=== PATIENT | male | born 1955 | race Asian ===

== ENCOUNTER 2021-11-06 20:30 | Observation (INO) ==
[2021-11-06] MEDS ORDERED: ONDANSETRON INJ 2 MG/ML 2 ML VIAL IV STA (20:42)
[2021-11-06] MEDS: MoRPHine SULFATE 4 MG/ML 1 ML CARP\\VIAL IV PRN (20:51)
[2021-11-06 21:30] LABS: Basophils # (auto) 0.02 K/uL (0-0.2); Basophils % (auto) 0.3 %; Eosinophils # (auto) 0.27 K/uL (0-0.5); Eosinophils % (auto) 3.5 %; Hematocrit (blood only) 42.2 % (42-52); Immature Granulocytes # (auto) 0.02 K/uL (0.00-0.02); Immature Granulocytes % (auto) 0.3 %; Lymphocytes # (auto) 2.28 K/uL (1.2-3.4); Lymphocytes % (auto) 29.3 %; Mean Corpuscular Hemoglobin 28.5 pg (25-34); Mean Corpuscular Hgb Conc 33.2 g/dL (32-36); Mean Corpuscular Volume 85.8 fL (80-100); Mean Platelet Volume 10.8 fL (7.4-10.4); Monocytes # (auto) 0.56 K/uL (0.11-0.59); Monocytes % (auto) 7.2 %; Neutrophils # (auto) 4.63 K/uL (1.4-6.5); Neutrophils % (auto) 59.4 %; Platelet Count 161 K/uL (130-400); RDW Coefficient of Variation 13.8 % (11.5-14.5); RDW Standard Deviation 42.9 fL (36.4-46.3); Red Blood Count 4.92 M/uL (4.7-6.1); White Blood Count 7.78 K/uL (4.8-10.8)
[2021-11-06 21:48] LABS: Albumin Globulin Ratio 1.4 (0.9-2); Bilirubin,Total 1.1 mg/dl (0.2-1.0); Calcium 8.9 mg/dl (8.5-10.1); Creatinine Clr Calc Pharmacy 91.1 ml/min; Est GFR (African American) 91.8 ml/min; Est GFR (Non-African American) 79.2 ml/min; Globulin 2.8 gm/dl (2.5-4.0); Potassium 3.9 mmol/L (3.5-5.1); Total Protein 6.8 gm/dl (6.0-8.3)
[2021-11-07] MEDS: MoRPHine SULFATE 4 MG/ML 1 ML CARP\\VIAL IV PRN ×2 (00:24→03:46)
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
--- NOTE | 2021-11-07 03:03 | History & Physical Report ---
Date of Service November 07, 2021 History of Present Illness Primary Care Provider: NO PCP Allergies Allergy/AdvReac Type Severity Reaction Status Date / Time No Known Allergies Allergy Unverified 11/06/21 21:49 Home Medications Medication Instructions Recorded Confirmed Type atenolol 25 mg tablet 25 mg PO DAILY 11/06/21 11/06/21 History atorvastatin 40 mg tablet 40 mg PO DAILY 11/06/21 11/06/21 History Past Med/Surg History Social History Smoking Status: Never smoker Preferred Language: Chadian Feels Safe at Home: Yes Results & Data Results & Data ([facility]) Vital Signs (Past 12 Hours) Vital Signs Temp Pulse Pulse Resp BP BP Pulse Ox 11/07/21 00:26 81 16 142/95 H 95 11/06/21 22:16 97 11/06/21 20:42 36.6 C 77 20 150/90 H 97 Laboratory Results Laboratory Results WBC 7.78 K/uL (4.8-10.8) 11/06/21 21:19 RBC 4.92 M/uL (4.7-6.1) 11/06/21 21:19 Hgb 14.0 g/dL (14.0-18.0) 11/06/21 21:19 Hct 42.2 % (42-52) 11/06/21 21:19 MCV 85.8 fL (80-100) 11/06/21 21:19 MCH 28.5 pg (25-34) 11/06/21 21:19 MCHC 33.2 g/dL (32-36) 11/06/21 21:19 RDW Std Deviation 42.9 fL (36.4-46.3) 11/06/21 21:19 RDW Coeff of Cari 13.8 % (11.5-14.5) 11/06/21 21:19 Plt Count 161 K/uL (130-400) 11/06/21 21:19 MPV 10.8 fL (7.4-10.4) H 11/06/21 21:19 Immature Gran % (Auto) 0.3 % 11/06/21 21:19 Neut % (Auto) 59.4 % 11/06/21 21:19 Lymph % (Auto) 29.3 % 11/06/21 21:19 Bureau % (Auto) 7.2 % 11/06/21 21:19 Eos % (Auto) 3.5 % 11/06/21 21:19 Baso % (Auto) 0.3 % 11/06/21 21:19 Neut # (Auto) 4.63 K/uL (1.4-6.5) 11/06/21 21:19 Lymph # (Auto) 2.28 K/uL (1.2-3.4) 11/06/21 21:19 Bureau # (Auto) 0.56 K/uL (0.11-0.59) 11/06/21 21:19 Eos # (Auto) 0.27 K/uL (0-0.5) 11/06/21 21:19 Baso # (Auto) 0.02 K/uL (0-0.2) 11/06/21 21:19 Immature Gran # (Auto) 0.02 K/uL (0.00-0.02) 11/06/21 21:19 Sodium 138 mmol/L (136-145) 11/06/21 21:19 Potassium 3.9 mmol/L (3.5-5.1) 11/06/21 21:19 Chloride 105 mmol/L (98-107) 11/06/21 21:19 Carbon Dioxide 28 mmol/L (21-32) 11/06/21 21:19 Anion Gap 5 (3-11) 11/06/21 21:19 BUN 18 mg/dl (6-23) 11/06/21 21:19 Creatinine 1.00 mg/dl (0.6-1.4) 11/06/21 21:19 Est Cr Clr Drug Dosing 91.1 ml/min 11/06/21 21:19 Est GFR ( Amer) 91.8 ml/min 11/06/21 21:19 Est GFR (Non-Af Amer) 79.2 ml/min 11/06/21 21:19 BUN/Creatinine Ratio 18.0 (10-20) 11/06/21 21:19 Glucose 104 mg/dl (70-99(Fasting)) H 11/06/21 21:19 Calcium 8.9 mg/dl (8.5-10.1) 11/06/21 21:19 Total Bilirubin 1.1 mg/dl (0.2-1.0) H 11/06/21 21:19 AST 25 U/L (13-39) 11/06/21 21:19 ALT 29 U/L (7-52) 11/06/21 21:19 Alkaline Phosphatase 74 U/L (34-104) 11/06/21 21:19 Total Protein 6.8 gm/dl (6.0-8.3) 11/06/21 21:19 Albumin 4.0 gm/dl (3.4-5.0) 11/06/21 21:19 Globulin 2.8 gm/dl (2.5-4.0) 11/06/21 21:19 Albumin/Globulin Ratio 1.4 (0.9-2) 11/06/21 21:19 SARS-CoV-2, RNA, NAAT NEGATIVE (NEGATIVE) 11/07/21 02:34 Diagnostic Findings Mild brain volume loss. No mass, hemorrhage or acute infarct. There is a small amount of fluid in the left maxillarysinus. Sphenoid sinus mucosal thickening. Right parietal scalp contusion. Impression: Soft tissue trauma.
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
[2021-11-07] MEDS ORDERED: MoRPHine SULFATE 4 MG/ML 1 ML CARP\\VIAL IV PRN (06:42)
[2021-11-07] MEDS ORDERED: ACETAMINOPHEN 325 MG TAB PO PRN (06:42)
[2021-11-07] MEDS ORDERED: MoRPHine SULFATE 2 MG/ML CARP IV PRN (06:42)
[2021-11-07] MEDS ORDERED: POLYETHYLENE (MIRALAX) 17 GM PACK PO PRN (06:42)
[2021-11-07] MEDS ORDERED: ONDANSETRON INJ 2 MG/ML 2 ML VIAL IV PRN (06:42)
[2021-11-07] MEDS ORDERED: DOCUSATE SODIUM 100 MG CAP PO PRN (06:42)
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
[2021-11-07] MEDS ORDERED: ATENOLOL 25 MG TABLET PO SCH (09:00)
[2021-11-07] MEDS ORDERED: ATORVASTATIN 40 MG TAB PO SCH (09:00)
[2021-11-07] MEDS: oxyCODONE HCL IR 5 MG TAB (IMMEDIATE RELEASE) PO PRN ×2 (09:42→15:31)
--- NOTE | 2021-11-07 10:45 | Electrocardiogram Report ---
Test Reason : Blood Pressure : / mmHG Vent. Rate : 076 BPM Atrial Rate : 076 BPM P-R Int : 196 ms QRS Dur : 086 ms QT Int : 396 ms P-R-T Axes : 044 013 -02 degrees QTc Int : 445 ms Normal sinus rhythm Inferior infarct , age undetermined Abnormal ECG No previous ECGs available Confirmed by Javier Briggs ([id number]) on 11/07/2021 10:45:19 AM Referred By: REFERRED SELF Confirmed By:Javier Briggs
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
== END 2021-11-07 17:00 | disposition home health service (06) ==
LOC: ED 20:30 → 3N 20:30 → SUATTDRO 11-07 03:39 → 3N 11-07 06:00
DX: S09.90XA Unspecified injury of head, initial encounter; S82.122A Displaced fracture of lateral condyle of left tibia, initial encounter for closed fracture; S39.012A Strain of muscle, fascia and tendon of lower back, initial encounter; V09.9XXA Pedestrian injured in unspecified transport accident, initial encounter